=== PATIENT | male | born 1970 | race Caucasian/White ===

== ENCOUNTER 2022-01-20 22:36 | Emergency (ER) | payer OTHER ==
[2022-01-21] MEDS ORDERED: Ketorolac Tromethamine 30 MG/ML VIAL ONE (02:37)
== END 2022-01-21 02:42 | disposition home or self-care (01) ==
LOC: ERS 22:36
DX: J32.9 Chronic sinusitis, unspecified (principal); M54.2 Cervicalgia
CPT/HCPCS: 96372; 99283; J1885